=== PATIENT | female | born 1940 ===

== ENCOUNTER 2016-10-13 06:29 | Day surgery (SDC) | payer MEDICARE, OTHER ==
[~2016-10-13 06:29] MED LIST: ADVAIR 25028 BLISTER INH; BAYER ASPIRIN325 MG PO; CALCIUM CARBON500 M2 PO; EC ASPIRIN325 MG PO; FISH OIL 11000 MG/CA PO; FISH OIL1 CAP PO; GARLIC1 EAC1 PO; IRON325 M1 PO; METOPROLOL TART25 M1 PO; MUCINEX600 MG PO; MULTIVITAMINS1 EAC6 PO; PACERONE100 MG PO; PERCOCET 5/3251 TAB PO; PROTONIX40 M1 PO; SPIRIVA18 MCG IH; SYNTHROID75 MC1 PO; SYNTHROID75 MCG PO; ZESTRIL2.5 M3 PO; ZOCOR40 M1 PO
[2016-10-13 07:17] LABS: INR 0.9 INR (0.9-1.1); PROTHROMBIN TIME 10.5 SECONDS (9.0-13.6)
[2016-10-13 07:23] LABS: BASO % 0.3 % (0-2); EOS % 6.9 % (0-7); EOSINOPHIL ABSOLUTE COUNT 0.4 tho/cmm (0.0-0.7); HCT-HEMATOCRIT 36.5 % (34.0-49.0); HGB-HEMOGLOBIN 11.7 gm/dl (12.0-15.5); IMMATURE GRANULOCYTES ABSOLUTE 0.01 tho/cmm (0-0.03); IMMATURE GRANULOCYTES PERCENT 0.2 % (0-0.3); LYMPH % 27.4 % (20-45); LYMPH ABSOLUTE COUNT 1.7 tho/cmm (0.8-4.5); MCH (MEAN CORPUSCULAR HGB) 29.6 pg (28.0-32.0); MCHC MEAN CORPUSCULAR HGB CONC 32.1 % (32.0-36.0); MCV (MEAN CELL VOLUME) 92.4 fl (82.0-96.0); MEAN PLATELET VOLUME 9.2 cmc (9.4-12.4); MONO % 5.4 % (0-12); MONOCYTE ABSOLUTE COUNT 0.3 tho/cmm (0.0-1.2); NEUTROPHIL ABSOLUTE COUNT 3.6 tho/cmm (1.6-8.0); NEUTROPHIL-AUTOMATED 3.6 tho/cmm (1.6-8.0); NEUTROPHILS % 59.8 % (40-80); PLATELET COUNT 268 tho/cmm (150-450); RED BLOOD COUNT 3.95 mil/cmm (4.00-5.20); WHITE BLOOD COUNT 6.1 tho/cmm (4.0-10.0)
[2016-12-23] MEDS ORDERED: GLUCOSAMINE CH1 EAC7 PO (14:51)
[2016-12-23] MEDS ORDERED: CITALOPRAM HBR40 M1 PO (14:51)
[2016-12-23] MEDS ORDERED: ASPIRIN325 M3 PO (14:53)
[2016-12-23] MEDS ORDERED: NITROGLYCERIN0.4 M2 SL (14:54)
== END 2016-10-13 10:20 ==
LOC: CTSCAN 06:29 → SHSC 06:30
PROVIDERS: Radiology Diagnostic Radiology
PROC: 0BBG3ZX Excision of Left Upper Lung Lobe, Percutaneous Approach, Diagnostic (ICD-10-PCS; principal; 2016-10-13)
DX: C34.12 Malignant neoplasm of upper lobe, left bronchus or lung (principal); E03.9 Hypothyroidism, unspecified; E78.5 Hyperlipidemia, unspecified; J44.9 Chronic obstructive pulmonary disease, unspecified; I25.10 Atherosclerotic heart disease of native coronary artery without angina pectoris; F17.210 Nicotine dependence, cigarettes, uncomplicated; Z95.1 Presence of aortocoronary bypass graft; Z79.899 Other long term (current) drug therapy; Z88.5 Allergy status to narcotic agent; Z90.710 Acquired absence of both cervix and uterus; Z98.890 Other specified postprocedural states
CPT/HCPCS: J3010; J7030

== ENCOUNTER 2016-12-28 08:53 | Inpatient (IN) | payer MEDICARE, OTHER ==
[~2016-12-28 08:53] MED LIST changes: +ASPIRIN325 M3 PO; +CITALOPRAM HBR40 M1 PO; +GLUCOSAMINE CH1 EAC7 PO; +NITROGLYCERIN0.4 M2 SL
[2016-12-28 15:31] LABS: BASO % 0.1 % (0-2); EOS % 0.1 % (0-7); HCT-HEMATOCRIT 33.6 % (34.0-49.0); HGB-HEMOGLOBIN 10.9 gm/dl (12.0-15.5); IMMATURE GRANULOCYTES ABSOLUTE 0.03 tho/cmm (0-0.03); IMMATURE GRANULOCYTES PERCENT 0.2 % (0-0.3); LYMPH % 4.4 % (20-45); LYMPH ABSOLUTE COUNT 0.6 tho/cmm (0.8-4.5); MCH (MEAN CORPUSCULAR HGB) 30.5 pg (28.0-32.0); MCHC MEAN CORPUSCULAR HGB CONC 32.4 % (32.0-36.0); MCV (MEAN CELL VOLUME) 94.1 fl (82.0-96.0); MONOCYTE ABSOLUTE COUNT 0.1 tho/cmm (0.0-1.2); NEUTROPHIL ABSOLUTE COUNT 13.6 tho/cmm (1.6-8.0); NEUTROPHIL-AUTOMATED 13.6 tho/cmm (1.6-8.0); NEUTROPHILS % 94.2 % (40-80); PLATELET COUNT 243 tho/cmm (150-450); RED BLOOD COUNT 3.57 mil/cmm (4.00-5.20)
[2016-12-28 15:33] LABS: WHITE BLOOD COUNT 14.4 tho/cmm (4.0-10.0)
[2016-12-29 05:06] LABS: BASO % 0.1 % (0-2); HCT-HEMATOCRIT 32.3 % (34.0-49.0); HGB-HEMOGLOBIN 10.4 gm/dl (12.0-15.5); IMMATURE GRANULOCYTES ABSOLUTE 0.02 tho/cmm (0-0.03); IMMATURE GRANULOCYTES PERCENT 0.2 % (0-0.3); LYMPH % 9.9 % (20-45); MCH (MEAN CORPUSCULAR HGB) 30.2 pg (28.0-32.0); MCHC MEAN CORPUSCULAR HGB CONC 32.2 % (32.0-36.0); MCV (MEAN CELL VOLUME) 93.9 fl (82.0-96.0); MEAN PLATELET VOLUME 8.8 cmc (9.4-12.4); MONO % 6.2 % (0-12); MONOCYTE ABSOLUTE COUNT 0.6 tho/cmm (0.0-1.2); NEUTROPHIL ABSOLUTE COUNT 8.6 tho/cmm (1.6-8.0); NEUTROPHIL-AUTOMATED 8.6 tho/cmm (1.6-8.0); NEUTROPHILS % 83.6 % (40-80); PLATELET COUNT 244 tho/cmm (150-450); RED BLOOD COUNT 3.44 mil/cmm (4.00-5.20); WHITE BLOOD COUNT 10.3 tho/cmm (4.0-10.0)
[2016-12-29 05:16] LABS: ANION GAP 9 mmol/L (0-20); BLOOD UREA NITROGEN 13 mg/dl (6-24); CARBON DIOXIDE-VENOUS 28 mmol/L (22-32); CHLORIDE 103 mmol/l (96-110); CREATININE 0.82 mg/dl (0.50-1.10); POTASSIUM 4.3 mmol/L (3.7-5.1); SODIUM 136 mmol/L (135-145); eGFR VALUE FOR BLACK 81 mL/Min
[2016-12-29 05:17] LABS: GLUCOSE 138 mg/dL (70-110)
[2016-12-31] MEDS ORDERED: NORCO 5-325 TA1 EACH PO (12:28)
[2016-12-31] MEDS ORDERED: LASIX40 M1 PO (12:30)
[2016-12-31] MEDS ORDERED: POTASSIUM CHLO20 ME3 PO (12:31)
== END 2016-12-31 19:10 | DRG 167 ==
LOC: SHSC 08:53 → ORW 10:51 → PACU 14:33 → PCUA 16:00
PROVIDERS: ADMIT Surgery
PROC: 0BBG4ZX Excision of Left Upper Lung Lobe, Percutaneous Endoscopic Approach, Diagnostic (ICD-10-PCS; principal; 2016-12-28)
PROC: 07B74ZX Excision of Thorax Lymphatic, Percutaneous Endoscopic Approach, Diagnostic (ICD-10-PCS; 2016-12-28)
PROC: 0BNP4ZZ Release Left Pleura, Percutaneous Endoscopic Approach (ICD-10-PCS; 2016-12-28)
PROC: 0BNN4ZZ Release Right Pleura, Percutaneous Endoscopic Approach (ICD-10-PCS; 2016-12-28)
PROC: 8E0W4CZ Robotic Assisted Procedure of Trunk Region, Percutaneous Endoscopic Approach (ICD-10-PCS; 2016-12-28)
DX: C34.12 Malignant neoplasm of upper lobe, left bronchus or lung (principal); J94.8 Other specified pleural conditions; J44.9 Chronic obstructive pulmonary disease, unspecified; I25.10 Atherosclerotic heart disease of native coronary artery without angina pectoris; E03.9 Hypothyroidism, unspecified; F17.200 Nicotine dependence, unspecified, uncomplicated; Z95.1 Presence of aortocoronary bypass graft; Z88.5 Allergy status to narcotic agent; Z79.82 Long term (current) use of aspirin; Z79.899 Other long term (current) drug therapy
CPT/HCPCS: C2615; J0690; J1650; J2250; J2405; J3010; J3480

== ENCOUNTER 2017-01-16 08:35 | Emergency (ER) | payer MEDICARE, OTHER ==
[~2017-01-16 08:35] MED LIST changes: +LASIX40 M1 PO; +NORCO 5-325 TA1 EACH PO; +POTASSIUM CHLO20 ME3 PO
[2017-01-16 09:15] LABS: BASO % 0.2 % (0-2); EOS % 13.6 % (0-7); EOSINOPHIL ABSOLUTE COUNT 1.3 tho/cmm (0.0-0.7); HCT-HEMATOCRIT 31.6 % (34.0-49.0); HGB-HEMOGLOBIN 10.3 gm/dl (12.0-15.5); IMMATURE GRANULOCYTES ABSOLUTE 0.01 tho/cmm (0-0.03); IMMATURE GRANULOCYTES PERCENT 0.1 % (0-0.3); LYMPH % 13.7 % (20-45); LYMPH ABSOLUTE COUNT 1.3 tho/cmm (0.8-4.5); MCHC MEAN CORPUSCULAR HGB CONC 32.6 % (32.0-36.0); MCV (MEAN CELL VOLUME) 92.1 fl (82.0-96.0); MEAN PLATELET VOLUME 8.5 cmc (9.4-12.4); MONO % 5.9 % (0-12); MONOCYTE ABSOLUTE COUNT 0.6 tho/cmm (0.0-1.2); NEUTROPHIL ABSOLUTE COUNT 6.2 tho/cmm (1.6-8.0); NEUTROPHIL-AUTOMATED 6.2 tho/cmm (1.6-8.0); NEUTROPHILS % 66.5 % (40-80); PLATELET COUNT 375 tho/cmm (150-450); RED BLOOD COUNT 3.43 mil/cmm (4.00-5.20); RED CELL DISTRIBUTION WIDTH 13.7 % (12.4-16.4); WHITE BLOOD COUNT 9.3 tho/cmm (4.0-10.0)
[2017-01-16 09:26] LABS: ANION GAP 10 mmol/L (0-20); BLOOD UREA NITROGEN 13 mg/dl (6-24); CALCIUM 8.7 mg/dl (8.5-10.5); CARBON DIOXIDE-VENOUS 28 mmol/L (22-32); CHLORIDE 107 mmol/l (96-110); CREATININE 0.85 mg/dl (0.50-1.10); GLUCOSE 95 mg/dL (70-110); LIPASE 69 U/L (73-393); POTASSIUM 4.1 mmol/L (3.7-5.1); SODIUM 141 mmol/L (135-145); eGFR VALUE FOR BLACK 77 mL/Min
[2017-01-16 09:32] LABS: URINE APPEARANCE HAZY; URINE BILIRUBIN NEGATIVE (NEG); URINE BLOOD MODERATE (NEG); URINE COLOR YELLOW; URINE GLUCOSE (UA) NEGATIVE (NEG); URINE KETONE NEGATIVE (NEG); URINE LEUKOCYTE ESTERASE NEGATIVE (NEG); URINE NITRITE NEGATIVE (NEG); URINE PH 6.5 (5.0-8.0); URINE PROTEIN MODERATE (NEG)
[2017-01-16 09:45] LABS: URINE EPITHELIAL CELLS 0-3 /[HPF] (0-10); URINE MUCUS 1+; URINE WBC 0-2 /[HPF] (0-5)
[2017-01-16] MEDS ORDERED: NEURONTIN300 M1 PO (10:04)
[2017-01-16] MEDS ORDERED: PERCOCET 5-3251 EACH PO (11:39)
== END 2017-01-16 11:50 ==
LOC: EDMED 08:35
PROVIDERS: Emergency Medicine
DX: J90 Pleural effusion, not elsewhere classified (principal); J44.9 Chronic obstructive pulmonary disease, unspecified; I25.10 Atherosclerotic heart disease of native coronary artery without angina pectoris; I10 Essential (primary) hypertension; Z95.1 Presence of aortocoronary bypass graft; Z90.710 Acquired absence of both cervix and uterus; Z87.891 Personal history of nicotine dependence; Z79.82 Long term (current) use of aspirin; Z79.890 Hormone replacement therapy; Z79.899 Other long term (current) drug therapy
CPT/HCPCS: J2270; J2405; J7030; Q9967